=== PATIENT | female | born 2000 | race Caucasian/White ===

== ENCOUNTER 2024-10-09 17:37 | Emergency (ER) | payer OTHER, SELFPAY ==
--- NOTE | 2024-10-09 19:06 | RAD REPORT ---
EXAMINATION: Ankle Right 3 View CLINICAL INDICATION: Female, 24 years old. PAIN COMPARISON: No prior exam. FINDINGS: No acute fracture. No malalignment/dislocation. Dorsal aspect calcaneal spur. Other: n/a IMPRESSION: No acute osseous abnormality.
--- NOTE | 2024-10-09 19:06 | RAD REPORT ---
EXAM: Foot Right 3 View HISTORY: PAIN COMPARISON: None FINDINGS: Bones: No acute fracture identified. Alignment:No significant malalignment. Degenerative changes:None significant. Other: n/a IMPRESSION: No evidence of acute osseous abnormality involving the imaged foot.
--- NOTE | 2024-10-09 19:16 | ER ---
Nurse's Notes [facility] Name: Nayely Purdy Age: 24 yrs Sex: Female : 2000 Arrival Date: 10/09/2024 Time: 17:37 Bed DX3 Private MD: Diagnosis: Sprain of unspecified ligament of right ankle, initial encounter Presentation: 10/09 18:17 Chief complaint: Patient states: they fell down some stairs last night, approximately kc6 two steps, and rolled the right ankle. Coronavirus screen: At this time, the client does not indicate any symptoms associated with coronavirus-19. Ebola Screen: No symptoms or risks identified at this time. Initial Sepsis Screen: Does the patient meet any 2 criteria? No. Patient's initial sepsis screen is negative. Does the patient have a suspected source of infection? No. Patient's initial sepsis screen is negative. Risk Assessment: Do you want to hurt yourself or someone else? Patient reports no desire to harm self or others. Onset of symptoms was October 09, 2024. 18:17 Method Of Arrival: Ambulatory [facility] 18:17 Acuity: АНДРЕЙ 4 kc6 Triage Assessment: 19:27 General: Appears in no apparent distress. Behavior is calm, cooperative, appropriate vc1 for age. Pain: Complains of pain in right lateral malleolus and right medial malleolus. EENT: No deficits noted. No signs and/or symptoms were reported regarding the EENT system. Neuro: Level of Consciousness is awake, alert, obeys commands, Oriented to person, place, time, situation, Appropriate for age. Cardiovascular: Patient's skin is warm and dry. Respiratory: Airway is patent Respiratory effort is even, unlabored, Respiratory pattern is regular, symmetrical. GI: No deficits noted. No signs and/or symptoms were reported involving the gastrointestinal system. : No deficits noted. No signs and/or symptoms were reported regarding the genitourinary system. Derm: Skin is intact, is healthy with good turgor, Skin is dry, Skin is normal. Musculoskeletal: Reports pain in right lateral malleolus and right medial malleolus. Historical: - Allergies: 18:21 No Known Allergies; kc6 - Home Meds: 18:21 None [Active]; kc6 - PMHx: 18:21 Asthma; kc6 - PSHx: 18:21 None; kc6 - Immunization history:: Adult Immunizations up to date. - Infectious Disease History:: Denies. - Social history:: Smoking status: Reported history of juuling and/or vaping. - Family history:: not pertinent. - Hospitalizations: : No recent hospitalization is reported. Screenin:00 [facility] ED Fall Risk Assessment (Adult) History of falling in the last 3 months, vc1 including since admission Yes- single mechanical fall (1 pt) Confusion or Disorientation No (0 pts) Intoxicated or Sedated No (0 pts) Impaired Gait Yes (1 pt) Mobility Assist Device Used No (0 pt) Altered Elimination No (0 pt) Score/Fall Risk Level 0 - 2 = Low Risk Oriented to surroundings, Maintained a safe environment, Educated pt \T\ family on fall prevention, incl call for assistance when getting out of bed. Abuse screen: Denies threats or abuse. Nutritional screening: No deficits noted. Tuberculosis screening: No symptoms or risk factors identified. Vital Signs: 18:17 BP 143 / 93; Pulse 80; Resp 17 S; Pulse Ox 98% on R/A; Weight 111.13 kg (R); Height 5 kc6 ft. 6 in. (R); Pain 8/10; 18:17 Body Mass Index 39.54 (111.13 kg, 167.64 cm) kc6 18:17 Pain Scale: Adult kc6 ED Course: 17:42 Patient arrived in ED. ra3 17:57 Chandler Cohn MD is Attending Physician. rn 18:21 Triage completed. kc6 18:21 Arm band placed on. kc6 18:56 XRAY Ankle RIGHT 3 view In Process Unspecified. EDMS 18:56 XRAY Foot RIGHT 3 View In Process Unspecified. EDMS 19:26 Seen and discharged from diagnostic chair. vc1 19:27 No provider procedures requiring assistance completed. Patient did not have IV access vc1 during this emergency room visit. 19:29 Provided Education on: alternate ibuprofen and tylenol for pain control, use charlotte wrap. vc1 Administered Medications: No medications were administered Medication: 19:27 VIS not applicable for this client. vc1 Outcome: 19:15 Discharge ordered by . rn 19:29 Discharged to home ambulatory, vc1 19:29 Condition: good 19:29 Discharge instructions given to patient, Instructed on discharge instructions, follow up and referral plans. Demonstrated understanding of instructions, follow-up care, 19:30 Patient left the ED. vc1 Signatures: Dispatcher [employer] EDChandler Aponte MD MD rn Calcote, Vanessa, RN RN vc1 Maci Odonnell RN RN kc6 Suyapa Rose ra3 Corrections: (The following items were deleted from the chart) 18:21 18:21 PMHx: None; yara kc6
--- NOTE | 2024-10-09 19:16 | EDPHYS ---
Physician Documentation [facility] Name: Nayely Purdy Age: 24 yrs Sex: Female : 2000 Arrival Date: 10/09/2024 Time: 17:37 Bed DX3 Private MD: ED Physician Chandler Cohn HPI: 10/09 18:37 This 24 yrs old Female presents to ER via Ambulatory with complaints of Fall Injury, rn Ankle Injury - Right, Foot Injury. 18:37 Details of fall: The patient fell from an upright position, while walking. Onset: The rn symptoms/episode began/occurred yesterday. Severity of symptoms: At their worst the symptoms were mild, in the emergency department the symptoms are unchanged. The patient has not experienced similar symptoms in the past. Patient reports walking down steps and misjudged the last 2 steps. Reports inversion injury to right ankle. Is ambulatory but hurts to walk at lateral malleolus. Denies pain proximal to ankle or distal foot.. Historical: - Allergies: 18:21 No Known Allergies; kc6 - Home Meds: 18:21 None [Active]; kc6 - PMHx: 18:21 Asthma; kc6 - PSHx: 18:21 None; kc6 - Immunization history:: Adult Immunizations up to date. - Infectious Disease History:: Denies. - Social history:: Smoking status: Reported history of juuling and/or vaping. - Family history:: not pertinent. - Hospitalizations: : No recent hospitalization is reported. ROS: 18:37 Constitutional: Negative for fever, chills, and weight loss, MS/Extremity: Positive for rn right ankle injury and pain Neuro: Negative for weakness or numbness Exam: 18:37 Constitutional: This is a well developed, well nourished patient who is awake, alert, rn and in no acute distress. MS/ Extremity: Pulses equal, no cyanosis. Neurovascular intact. Mild tenderness and swelling at lateral malleolus of right ankle. No open wounds. No tenderness proximal to lateral malleolus of tib-fib. No foot tenderness. Vital Signs: 18:17 BP 143 / 93; Pulse 80; Resp 17 S; Pulse Ox 98% on R/A; Weight 111.13 kg (R); Height 5 kc6 ft. 6 in. (R); Pain 8/10; 18:17 Body Mass Index 39.54 (111.13 kg, 167.64 cm) kc6 18:17 Pain Scale: Adult kc6 MDM: 17:57 Medical Screening Exam initiated rn 19:14 Differential diagnosis: contusion, fracture, sprain, strain. Data reviewed: vital rn signs, nurses notes, radiologic studies, plain films, and as a result, I will discharge patient. Counseling: I had a detailed discussion with the patient and/or guardian regarding the historical points, exam findings, and any diagnostic results supporting the discharge/admit diagnosis, radiology results, the need for outpatient follow up, to return to the emergency department if symptoms worsen or persist or if there are any questions or concerns that arise at home. Special discussion: I discussed with the patient/guardian in detail that at this point there is no indication for admission to the hospital. It is understood, however, that if the symptoms persist or worsen the patient needs to return immediately for re-evaluation. 19:14 ED course: Patient declines walking boot. Prefers Alex wrap and will get ankle brace. rn X-ray right ankle images negative for fracture or dislocation per my interpretation.. 10/09 17:58 Order name: XRAY Ankle RIGHT 3 view; Complete Time: 19:10 rn 10/09 17:58 Order name: XRAY Foot RIGHT 3 View; Complete Time: 19:10 rn 10/09 19:14 Order name: Alex Wrap rn Administered Medications: No medications were administered Disposition Summary: 10/09/24 19:15 Discharge Ordered Notes: Location: Home rn Problem: new rn Symptoms: have improved rn Condition: Stable rn Diagnosis - Sprain of unspecified ligament of right ankle, initial encounter rn Followup: rn - With: Private Physician - When: As needed - Reason: Recheck today's complaints, Re-evaluation by your physician Discharge Instructions: - Discharge Summary Sheet rn - Ankle Sprain rn Forms: - Medication Reconciliation Form rn - 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 EDMA KANEMA 18:21 18:21 PMHx: None; kc6 kc6
[2024-10-09 22:14] VITALS: BP 143/93; O2SAT 98
== END 2024-10-09 19:30 | disposition home or self-care (01) ==
LOC: ER 17:37
DX: S93.401A Sprain of unspecified ligament of right ankle, initial encounter (principal)
CPT/HCPCS: 99282

== ENCOUNTER 2024-11-08 03:35 | Emergency (ER) | payer OTHER, SELFPAY ==
--- NOTE | 2024-11-08 04:01 | ER ---
Nurse's Notes [facility] Name: Nayely Purdy Age: 24 yrs Sex: Female : 2000 Arrival Date: 11/08/2024 Time: 03:35 Bed 14 Private MD: Diagnosis: Streptococcal pharyngitis Presentation: 11/08 03:45 Chief complaint: Patient states: sore throat, very painful to swallow. ha1 03:45 Coronavirus screen: Vaccine status: Patient reports being unvaccinated. Ebola Screen: ha1 No symptoms or risks identified at this time. Initial Sepsis Screen: Does the patient meet any 2 criteria? No. Patient's initial sepsis screen is negative. Does the patient have a suspected source of infection? No. Patient's initial sepsis screen is negative. Risk Assessment: Do you want to hurt yourself or someone else? Patient reports no desire to harm self or others. Onset of symptoms was November 08, 2024. 03:45 Method Of Arrival: Ambulatory ha1 03:45 Acuity: АНДРЕЙ 4 ha1 Triage Assessment: 03:45 General: Appears comfortable, Behavior is calm, cooperative. Pain: Complains of pain in ha1 sore throat. EENT: Throat is reddened. Neuro: Level of Consciousness is awake, alert, obeys commands, Oriented to person, place, time, situation. Cardiovascular: Capillary refill < 3 seconds Patient's skin is warm and dry. Respiratory: Airway is patent Respiratory effort is even, unlabored, Respiratory pattern is regular, symmetrical. GI: No signs and/or symptoms were reported involving the gastrointestinal system. Musculoskeletal: Circulation, motion, and sensation intact. Range of motion: intact in all extremities. 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 - Infectious Disease History:: Denies. - Social history:: Smoking status: Patient reports the use of cigarette tobacco products, denies chronic smoking, but will smoke occasionally. Screenin:00 [facility] ED Fall Risk Assessment (Adult) History of falling in the last 3 months, ha1 including since admission No falls in past 3 months (0 pts) Confusion or Disorientation No (0 pts) Intoxicated or Sedated No (0 pts) Impaired Gait No (0 pts) Mobility Assist Device Used No (0 pt) Altered Elimination No (0 pt) Score/Fall Risk Level 0 - 2 = Low Risk Oriented to surroundings, Maintained a safe environment, Educated pt \T\ family on fall prevention, incl call for assistance when getting out of bed, Hourly rounding (assess needs \T\ fall precautionary measures) done. Abuse screen: Denies threats or abuse. Denies injuries from another. Nutritional screening: No deficits noted. Tuberculosis screening: No symptoms or risk factors identified. Assessment: 03:45 Reassessment: see triage assessment. Respiratory: Airway is patent Trachea midline ha1 Respiratory effort is even, unlabored, Respiratory pattern is regular, symmetrical. 03:45 Cardiovascular: Patient's skin is warm and dry. ha1 04:03 General: Appears in no apparent distress. Behavior is calm, cooperative. Pain: kj2 Complains of pain in sore throat. Neuro: Level of Consciousness is awake, alert, Oriented to person, place, time, situation. Cardiovascular: Patient's skin is warm and dry. Respiratory: Airway is patent Respiratory effort is unlabored. GI: No signs and/or symptoms were reported involving the gastrointestinal system. : EENT: Throat is reddened. 04:07 Respiratory: Breath sounds are clear bilaterally. kj2 Vital Signs: 03:45 BP 182 / 73; Pulse 87; Resp 16 S; Temp 98.6(O); Pulse Ox 100% on R/A; Weight 99.79 kg; ha1 Height 5 ft. 7 in. ; 04:06 BP 149 / 84; Pulse 78; Resp 20; Temp 98; Pulse Ox 100% ; Weight 113.4 kg; Height 5 ft. kj2 6 in. ; Pain 6/10; 04:06 Body Mass Index 40.35 (113.40 kg, 167.64 cm) kj2 04:06 Pain Scale: Adult kj2 ED Course: 03:40 Patient arrived in ED. gm2 03:41 Audie Cavanaugh MD is Attending Physician. rt 03:45 Arm band placed on right wrist. ha1 03:45 Patient has correct armband on for positive identification. Bed in low position. Call ha1 light in reach. Side rails up X 1. 03:56 Triage completed. ha1 03:59 Lali Snowden, RN is Primary Nurse. kj2 04:06 No provider procedures requiring assistance completed. Patient did not have IV access ha1 during this emergency room visit. 04:07 Provided Education on: med regimen. kj2 04:07 Provided Education on: follow ups and medication administration . ha1 Administered Medications: No medications were administered Medication: 04:06 VIS not applicable for this client. ha1 Outcome: 04:00 Discharge ordered by . rt 04:06 Discharged to home ambulatory, with family, ha1 04:06 Condition: stable 04:06 Discharge instructions given to patient, Instructed on discharge instructions, follow up and referral plans. medication usage, Demonstrated understanding of instructions, follow-up care, medications, Prescriptions given X 1, :07 Patient left the ED. ha1 Signatures: Chika Welch RN RN ha1 Audie Cavanaugh MD MD rt aMry Khan 2 Lali Snowden, JEREMY RN kj2
--- NOTE | 2024-11-08 04:01 | EDPHYS ---
Physician Documentation [facility] Name: Nayely Purdy Age: 24 yrs Sex: Female : 2000 Arrival Date: 11/08/2024 Time: 03:35 Bed 14 Private MD: ED Physician Audie Cavanaugh HPI: 11/08 04:38 This 24 yrs old Female presents to ER via Ambulatory with complaints of Sore Throat, rt Pain. 04:38 Patient presents to the ED with sore throat, pain with swallowing for about 1 day. Did rt not take anything for the symptoms. Denies fever, chills, acute complaints including cough. Symptoms are mild in severity, no other aggravating or alleviating factors.. 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 - Infectious Disease History:: Denies. - Social history:: Smoking status: Patient reports the use of cigarette tobacco products, denies chronic smoking, but will smoke occasionally. ROS: 04:39 Constitutional: Negative for fever, chills, and weight loss, Cardiovascular: Negative rt for chest pain, palpitations, and edema, Respiratory: Negative for shortness of breath, cough, wheezing, and pleuritic chest pain, Abdomen/GI: Negative for abdominal pain, nausea, vomiting, diarrhea, and constipation, Skin: Negative for injury, rash, and discoloration, Neuro: Negative for headache, weakness, numbness, tingling, and seizure, 04:39 ENT: Positive for sore throat, Negative for ear pain, Exam: 04:39 Constitutional: This is a well developed, well nourished patient who is awake, alert, rt and in no acute distress. Head/Face: Normocephalic, atraumatic. Chest/axilla: Normal chest wall appearance and motion. Nontender with no deformity. No lesions are appreciated. Cardiovascular: Regular rate and rhythm with a normal S1 and S2. No gallops, murmurs, or rubs. Normal PMI, no JVD. No pulse deficits. Respiratory: Lungs have equal breath sounds bilaterally, clear to auscultation and percussion. No rales, rhonchi or wheezes noted. No increased work of breathing, no retractions or nasal flaring. Abdomen/GI: Soft, non-tender, with normal bowel sounds. No distension or tympany. No guarding or rebound. No evidence of tenderness throughout. Skin: Warm, dry with normal turgor. Normal color with no rashes, no lesions, and no evidence of cellulitis. MS/ Extremity: Pulses equal, no cyanosis. Neurovascular intact. Full, normal range of motion. 04:39 ENT: Posterior pharyngeal erythema scant exudates, 2+ tonsils, symmetric, uvula is midline. Vital Signs: 03:45 BP 182 / 73; Pulse 87; Resp 16 S; Temp 98.6(O); Pulse Ox 100% on R/A; Weight 99.79 kg; ha1 Height 5 ft. 7 in. ; 04:06 BP 149 / 84; Pulse 78; Resp 20; Temp 98; Pulse Ox 100% ; Weight 113.4 kg; Height 5 ft. kj2 6 in. ; Pain 6/10; 04:06 Body Mass Index 40.35 (113.40 kg, 167.64 cm) kj2 04:06 Pain Scale: Adult kj2 MDM: 03:59 Medical Screening Exam initiated rt 04:39 Differential diagnosis: Viral syndrome, strep pharyngitis. Data reviewed: vital signs, rt nurses notes. Test considered but Not performed: Other Details Patient's throat is strong appearance of streptococcal pharyngitis, states this is similar to when he had strep throat before. Will treat empirically without testing after discussion with the patient.. Counseling: I had a detailed discussion with the patient and/or guardian regarding the historical points, exam findings, and any diagnostic results supporting the discharge/admit diagnosis, the need for outpatient follow up. Administered Medications: No medications were administered Disposition Summary: 11/08/24 04:00 Discharge Ordered Notes: Location: Home rt Problem: new rt Symptoms: are unchanged rt Condition: Stable rt Diagnosis - Streptococcal pharyngitis rt Followup: rt - With: Private Physician - When: 2 - 3 days - Reason: Discharge Instructions: - Discharge Summary Sheet rt - Strep Throat, Adult rt Forms: - Medication Reconciliation Form rt - Antibiotic Education rt - Prescription Opioid Use rt - Patient Portal Instructions rt - Leadership Thank You Letter rt Prescriptions: - Amoxicillin 875 mg Oral Tablet - take 1 tablet ORAL route every 12 hours for 10 days; 20 tablet; Refills: 0, rt Product Selection Permitted Signatures: Chika Welch RN RN ha1 Audie Cavanaugh MD MD rt
[2024-11-08 04:31] VITALS: O2SAT 100
[2024-11-08 04:32] VITALS: BP 149/84; TEMP 98
== END 2024-11-08 04:07 | disposition home or self-care (01) ==
LOC: ER 03:35
DX: J02.0 Streptococcal pharyngitis (principal); F17.210 Nicotine dependence, cigarettes, uncomplicated; J45.909 Unspecified asthma, uncomplicated
CPT/HCPCS: 99283